=== PATIENT | female | born 1970 | race Two or more races ===

== ENCOUNTER 2017-04-05 17:56 | Emergency (ER) | payer MEDICAID ==
--- NOTE | 2017-04-05 18:22 | ED Physician Chart ---
Chief Complaint/HPI - Patient Information Date Seen:: 04/05/17 Time Seen:: 18:10 Chief Complaint:: Subjective sensation of having hair inside the left eye since about 5 pm. History of Present Illness:: As above. No eye pain per say. No N/V. No visual changes in terms of blurry vision or diplopia. Allergies:: Allergies Allergy/AdvReac Type Severity Reaction Status Date / Time Penicillins [PCN] AdvReac Verified 04/05/17 18:03 Vitals:: Vital Signs - 8 hr 04/05/17 18:03 Temp 97.9 F HR 74 RR 16 BP 132/74 Historian:: Patient Family MD/PCP:: Dr. Keating LMP:: Postmenopausal Review:: Nurse's Note Reviewed Review of Systems - Review of Systems General/Constitutional: No fever, No chills, No weight loss, No weakness, No diaphoresis, No edema, No loss of appetite Skin: No skin lesions, No rash, No bruising Head: No headache, No light-headedness Eyes: No loss of vision, No pain, No diplopia, Other (Foreign body sensation in R eye.) ENT: No earache, No nasal drainage, No sore throat, No tinnitus Neck: No neck pain, No swelling Cardio Vascular: No chest pain, No palpitations, No edema Pulmonary: No SOB, No cough, No wheezing GI: No nausea, No vomiting, No diarrhea, No pain Musculoskeletal: No bone or joint pain, No back pain, No muscle pain Endocrine: No polyuria, No polydipsia Psychiatric: No prior psych history Hematopoietic: No bruising, No lymphadenopathy Allergic/Immuno: No urticaria, No angioedema Neurological: No syncope, No focal symptoms, No weakness, No paresthesia, No headache, No dizziness, No confusion Past Medical History - Past Medical History Past Medical History: No significant medical hx Family History: Diabetes Melitus (sister), Cancer (father) Social History: Non Smoker, No Alcohol, No Drug Use, Single, Other (lives with her children.) 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 Surgical History: other (R eye surgery related to ? pterygium removal 01/2017.) Family Medical History - Family Member Mother Ethnicity: Hx Family Cancer: No Hx Family Coronary Artery Disease: No Hx Family Congestive Heart Failure: No Hx Family Hypertension: No Hx Family Stroke: No Hx Family Seizures: No Hx Family Dementia: No Hx Family AIDS: No Hx Family HIV: No Hx Family Hepatitis: No Hx Family Tuberculosis: No Physical Exam - Physical Examination General/Constitutional: Awake, Well-developed, well-nourished, Alert, No distress, GCS 15, Non-toxic appearing, Ambulatory Other Gen/Cons comments:: Breathes comfortably, speaks clearly, interacts normally, and ambulates without difficulty. Head: Atraumatic Eyes: Lids, conjuctiva normal, PERRL, EOMI Other Eyes comments:: L eye: No hyperemia or swelling. No exudate. Eyelids were everted. No foreign body found. L eye was well irrigated with sterile normal saline. There is a fine piece of hair that appears to have been flushed out. Pt feels much better. Skin: Nl inspection, No rash, No skin lesions, No ecchymosis, Well hydrated, No lymphadenopathy ENMT: External ears, nose nl, Nasal exam nl, Lips, teeth, gums nl, Oropharynx nl Neck: Nontender, Full ROM w/o pain, No nuchal rigidity, No stridor Respiratory: Nl effort/Exclusion, Clear to Auscultation, No Wheeze/Rhonchi/Rales Cardio Vascular: RRR, No murmur, gallop, rubs GI: No tenderness/rebounding/guarding, No organomegaly, Normal BS's, Nondistended Other GI comments:: Abdomen is soft. Extremities: No tenderness or effusion, Full ROM, normal strength in all extremities, No edema, Normal digits & nails Neuro/Psych: Alert/oriented (oriented x 3), Judgement/insight normal, Mood normal, Normal gait, No focal deficits ED Septic Shock - . Is Septic Shock (SBP<90, OR Lactate>4 mmol\L) present?: No - <6hrs of presentation: Vital Signs: Vital Signs - 8 hr 04/05/17 18:03 Temp 97.9 F HR 74 RR 16 BP 132/74 Reassessment (Disposition) - Reassessment Reassessment:: 1900 Pt remains well and her L eye is comfortable after it was irrigated with sterile normal saline. A small piece of thin hair was flush out. Pt requests to go home now and does not want further observation/management in hospital. Aftercare instructions have been given. Reassessment Condition:: Improved - Diagnosis Diagnosis:: Foreign body (fine hair) in L eye, resolved. - Aftercare/Follow up Instructions Aftercare/Follow-Up Instructions:: Refer to Discharge Instructions Notes:: Continue present care. Eye hygiene instructions given. F/U with PCP Dr. Keating in 1-2 days for recheck. Return to ER immediately if condition worsens or if any further questions/problems. Medication Prescribed:: None - Patient Disposition Discharge/Transfer:: Home Time:: 19:05 Condition at Disposition:: Stable, Improved ED Discharge Plan - Patient Disposition Admit/Discharge/Transfer: PT DISCHARGED HOME Condition at Disposition: Improved Instructions: Eye - Foreign Body, [id number], Eye - Corneal Abrasion
== END 2017-04-05 19:10 | disposition home or self-care (01) ==
LOC: ER 17:56
DX: T15.92XA Foreign body on external eye, part unspecified, left eye, initial encounter (principal)